=== PATIENT | female | born 1960 | race Asian ===

== ENCOUNTER 2018-12-17 12:36 | Day surgery (SDC) | payer OTHER ==
[~2018-12-17] VITALS: Ht 154.9 cm; Wt 44.1 kg
[~2018-12-17 12:36] MED LIST: PROPOFOL 200 MG INJ ONE
[2018-12-17 13:14] VITALS: Ht 154.9 cm; Wt 44.1 kg
[2018-12-17] MEDS ORDERED: CETI10TA34 PO (13:19)
[2018-12-17] MEDS ORDERED: FISH OIL (13:19)
[2018-12-17] MEDS ORDERED: BIOTIN (13:19)
[2018-12-17] MEDS ORDERED: VITAMINS (13:19)
[2018-12-17 13:42] VITALS: BP 122/63; PULSE 86; RESP 15
--- NOTE | 2018-12-17 14:56 | HPN ---
Date/Time of Note Date/Time of Note DATE: 12/17/18 TIME: 14:54 Interval H&P Admission Note Pt. seen H&P reviewed: No system changes ERLIN SNOW Dec 17, 2018 14:56
[2018-12-17] MEDS ORDERED: LIDOCAINE 2% (SDV) 5 ML INJ ONE (15:01)
[2018-12-17] MEDS ORDERED: PROPOFOL 60 ML ONE (15:01)
--- NOTE | 2018-12-17 15:11 | PREAC ---
Date/Time of Note Date/Time of Note DATE: 12/17/18 TIME: 15:09 Anesthesia Eval and Record Evaluation Time Pre-Procedure Interview DATE: 12/17/18 TIME: 15:09 Age 58 Sex female NPO: 8 hrs Preoperative diagnosis colon screening Planned procedure Colonoscopy Past Medical History Past Medical History: None Surgery & Anesthesia Issues No known issue Meds Anticoagulation: No Beta Ree within 24 hr: No Reason Beta Ree not given: Pt. not on B-Ree Reported Medications Cetirizine Hcl* (Cetirizine Hcl*) 10 Mg Tab.chew, 10 MG PO DAILY, #30 TAB 12/17/18 [Fish Oil] No Conflict Check 12/17/18 [Biotin] No Conflict Check 12/17/18 [Vitamins] No Conflict Check 12/17/18 Meds reviewed: Yes Allergies Coded Allergies: No Known Allergy (Unverified , 12/17/18) Allergies Reviewed: Yes Labs/Studies Labs Reviewed: Reviewed by anesthesiologist test: Negative Studies: ECG Pre-procedure Exam Last vitals Vital Signs Date Temp Pulse Resp B/P (MAP) Pulse Ox O2 O2 Flow FiO2 Time Delivery Rate 12/17/18 98.3 86 15 122/63 100 Room Air 13:42 (82) Airway: Adequate mouth opening, Adequate thyromental dist Mallampati: Mallampati II Teeth: Normal Lung: Normal Heart: Normal ASA Physical Status ASA physical status: 2 Emergency: None Planned Anesthetic General/MAC: MAC Planned Pain Management Parenteral pain med Pre-operative Attestations Prior to commencing anesthesia and surgery, the patient was re-evaluated, there was verification of: *The patient's identity *The results of appropriate recent lab work and preoperative vital signs *The above evaluation not changing prior to induction *Anesthetic plan, risk benefits, alternative and complications discussed with patient/family; questions answered; patient/family understands, accepts and wishes to proceed. ARCHIE SAAVEDRA MD Dec 17, 2018 15:11
--- NOTE | 2018-12-17 15:20 | PAC ---
Date/Time of Note Date/Time of Note DATE: 12/17/18 TIME: 15:20 Post-Anesthesia Notes Post-Anesthesia Note Last documented vital signs Vital Signs Date Temp Pulse Resp B/P (MAP) Pulse Ox O2 O2 Flow FiO2 Time Delivery Rate 12/17/18 98.3 86 15 122/63 100 Room Air 13:42 (82) Activity: WNL Respiratory function: WNL Cardiovascular function: WNL Mental status: Baseline Pain reasonably controlled: Yes Hydration appropriate: Yes Nausea/Vomiting absent: Yes Comments Bp:112/55, P:78, Spo2:100%, T:98,5 ARCHIE SAAVEDRA MD Dec 17, 2018 15:20
[2018-12-17 15:44] VITALS: BP 119/69; RESP 14
== END 2018-12-17 16:34 | disposition home or self-care (01) ==
LOC: GIL 12:36
PROVIDERS: ATTEND Internal Medicine Gastroenterology
DX: Z12.11 Encounter for screening for malignant neoplasm of colon (principal); K64.8 Other hemorrhoids
CPT/HCPCS: 45378; Z7610